=== PATIENT | male | born 1985 | race Caucasian/White ===

== ENCOUNTER 2020-03-20 20:27 | Emergency (ER) | payer BC ==
[~2020-03-20] VITALS: Ht 170.2 cm; Wt 94.7 kg
--- NOTE | 2020-03-20 21:53 | NUR ---
TRUCK DRIVER FLATBED: PT WALKED BACK FROM LOBBY TO ROOM AT THIS TIME.
--- NOTE | 2020-03-20 22:10 | NUR ---
PT ATTACHED TO CARDIAC AND VS MONITORS. VSS AT THIS TIME. PT EDUCATED ON ER PROCESS AND VERBALIZES UNDERSTANDING. LEA DENIS, AT FOR PT HISTORY AND ASSESSMENT.
[2020-03-20] MEDS ORDERED: DEXAMETHASONE 4 MG TABLET PO ONE (23:00)
[2020-03-20] MEDS ORDERED: DEXAMETHASONE 4 MG TABLET ONE (23:46)
[2020-03-21] VITALS: BP 122/71
--- NOTE | 2020-03-21 | NUR ---
PT D/C WITH D/C SUMMARY AND SCRIPTS. ALL QUESTIONS ANSWERED. PT MEDICATED PER MAR PRIOR TO PT D/C. PT DENIES ANY OTHER NEEDS PERTAINING TO THIS VISIT AND AMBULATES TO REGISTRATION DESK WITH STEADY GAIT FOR D/C HOME.
== END 2020-03-21 00:02 | disposition home or self-care (01) ==
LOC: ED 22:15
DX: J18.9 Pneumonia, unspecified organism (principal); R07.89 Other chest pain; R06.00 Dyspnea, unspecified; R05 Cough
CPT/HCPCS: 71045; 93005; 99283